=== PATIENT | female | born 1995 | race Caucasian/White ===

== ENCOUNTER 2020-09-19 10:30 | Outpatient (CLI) | payer OTHER, SELFPAY ==
[2020-09-19 11:06] LABS: Hematocrit 39.3 % (37.0-47.0); Hemoglobin 12.9 g/dL (12.0-15.0); Mean Corpuscular HGB Conc 32.8 g/dl (32-36); Mean Corpuscular Hemoglobin 28.8 pg (26-34); Mean Corpuscular Volume 87.7 fl (80-100); Mean Platelet Volume 10.9 fl (7.4-10.4); Platelet Count Result 244 k/mm3 (150-375); Red Blood Count 4.48 M/mm3 (4.2-5.4); Red Cell Distribution Width 13.1 % (11.5-14.5); White Blood Count 6.2 K/mm3 (4.5-10.0)
[2020-09-19 12:33] LABS: T4 Thyroxine 7.69 ug/dL (5.53-11.0)
[2020-09-19 12:34] LABS: Vitamin D 25 Hydroxy 73.6 ng/mL
== END 2020-09-19 10:31 | disposition home or self-care (01) ==
LOC: ANHLAB 10:33
PROVIDERS: Visit Provider Obstetrics & Gynecology
DX: R53.83 Other fatigue (principal)
CPT/HCPCS: 36415; 82306; 84436; 84443; 85027

== ENCOUNTER 2021-02-17 08:56 | Outpatient (CLI) | payer OTHER, SELFPAY ==
--- NOTE | ~2021-02-17 | US_ITS ---
EXAMINATION: US right upper quadrant DATE: 02/17/2021 09:19 INDICATION: Unspecified abdominal pain. TECHNIQUE: Multiple grayscale and Doppler ultrasound images of the abdomen were obtained. COMPARISON: None FINDINGS: Pancreas is normal. Liver has normal echogenicity and contour, with a smooth surface. No liver lesion identified. No intrahepatic biliary duct dilation suspected. Portal venous flow was seen in the hepa topetal, normal direction and has normal Doppler waveform. The visualized proximal to mid inferior ve na cava is normal. Liver has normal echogenicity and contour, with a smooth surface. No liver lesion identified. No intrahepatic biliary duct dilation suspected. Portal venous flow was seen in the hepat opetal, normal direction and has normal Doppler waveform. Sonographic Green sign was reported as neg ative by the hand touch up painter. IMPRESSION: 1. Normal right upper quadrant ultrasound. Reviewed, dictated and finalized at location B. 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
== END 2021-02-17 08:57 | disposition home or self-care (01) ==
PROVIDERS: PCP Family Medicine; Visit Provider Obstetrics & Gynecology
DX: R10.9 Unspecified abdominal pain (principal)
CPT/HCPCS: 76705

== ENCOUNTER 2022-03-01 11:06 | Observation (INO) | payer OTHER, SELFPAY ==
[2022-03-01] VITALS (9 sets, daily range): BP systolic 94–126; BP diastolic 53–79; PULSE 60–120; RESP 14–18; TEMP 36.2–38.2; O2SAT 95–98; BMI 27.2
--- NOTE | ~2022-03-01 | US_ITS ---
Pelvic ultrasound. Clinical History: Pelvic pain, fever, 9 days Technique: Realtime transabdominal and transvaginal scanning of the pelvis was performed. Color flow Doppler and Doppler spectral analysis were performed. Findings: The uterus is anteverted. There is heterogeneous material/fluid distending the endometrial cavity. There is a focal area of avid color flow adjacent to the endometrial lining on color-flow elana ging. The right ovary measures 1.3 x 2.5 x 1.2 cm. No significant right ovarian or adnexal mass is seen. The left ovary measures 2.1 x 1.4 x 1.0 cm. No significant left ovarian or adnexal mass is seen. Vascular flow present in both ovaries on Doppler spectral analysis. There is no evidence of free fluid in the cul de sac. Impression: Heterogeneous fluid distending the endometrial cavity. This could reflect blood products related to r ecent /delivery. Correlate clinically for endometritis. Focal area of avid color flow adjacent to the endometrial lining on color-flow imaging. Focal area of retained products of conception is a potential consideration. Reviewed, dictated and finalized at [facility]. 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 This could reflect blood products related to recent /delivery. Correlate clinically for endome tritis. Focal area of avid color flow adjacent to the endometrial lining on color-flow imaging. Focal area of retained products of conception is a potential considera tion.
[2022-03-01] MEDS: LACTATED RINGERS 1,000 ML 999 ML IV CONT ×2 (11:40→12:13)
[2022-03-01 11:53] LABS: Basophils Percent Auto 0.3 % (0.2-1.2); Eosinophils Absolute Auto 0.1 K/mm3 (0-0.3); Eosinophils Percent Auto 0.5 % (0-4.4); Hemoglobin 13.3 g/dL (12.0-15.0); Immature Granulocyte Absolute 0.06 K/mm3 (0.00-0.031); Immature Granulocyte Percent A 0.4 % (0-0.5); Lymphocytes Absolute Auto 1.29 K/mm3 (0.9-3.2); Lymphocytes Percent Auto 9.4 % (18.3-44.2); Mean Corpuscular HGB Conc 33.3 g/dl (32-36); Mean Corpuscular Hemoglobin 28.4 pg (26-34); Mean Corpuscular Volume 85.5 fl (80-100); Mean Platelet Volume 10.8 fl (7.4-10.4); Monocytes Absolute Auto 0.8 K/mm3 (0.1-0.6); Monocytes Percent Auto 6.1 % (2.6-8.5); Neutrophils Absolute Auto 11.4 K/mm3 (1.3-6.7); Neutrophils Percent Auto 83.3 % (45.5-73.1); Platelet Count Result 269 k/mm3 (150-375); Red Blood Count 4.68 M/mm3 (4.2-5.4); Red Cell Distribution Width 13.3 % (11.5-14.5); White Blood Count 13.7 K/mm3 (4.5-10.0)
[2022-03-01 12:03] LABS: Partial Thromboplastin Time 31.3 SECONDS (22.3-36.8); Prothrombin Time 12.8 Seconds (11.1-14.7)
[2022-03-01 12:09] LABS: Alanine Aminotransferase 22 U/L (6-35); Albumin Level 4.3 g/dL (3.5-5.1); Alkaline Phosphatase 96 U/L (38-126); Anion Gap 8 mmol/L (8-16); Aspartate Amino Transferase 21 U/L (14-36); Bilirubin,Total 0.5 mg/dL (0.2-1.3); Blood Urea Nitrogen 16 mg/dL (7-17); Calcium 8.8 mg/dL (8.4-10.2); Carbon Dioxide 24 mmol/L (22-30); Chloride 102 mmol/L (98-107); Estimated CRCL calculation 122 ml/min; Estimated Glomerular Filt Rate > 60; Glucose 90 mg/dL (65-110); Sodium 134 mmol/L (137-145)
[2022-03-01 12:17] LABS: Lactic Acid Reflex 0.7 mmol/L (0.7-2.0)
[2022-03-01 12:32] LABS: CRP 2.6 mg/dL (<1.0)
[2022-03-01 12:40] LABS: Influenza A QL RT-PCR Negative (Negative); Influenza B QL RT-PCR Negative (Negative); RSV RNA, RT-PCR Negative (Negative); SARS-CoV-2 RNA PCR Negative
[2022-03-01 13:20] LABS: Appearance Urine Clear (Clear); Bilirubin Urine Negative (Negative); Blood Urine 3+ (Negative); Color Urine Yellow (Yellow); Glucose Urine UA Negative (Negative); Ketones Urine Negative (Negative); Leukocyte Esterase Ur 1+ LEU/UL (Negative); Nitrate Urine Negative (Negative); Protein Urine Negative (Negative); Urobilinogen Urine 0.2 mg/dL (<2.0); pH Urine 5.5 (5.0-9.0)
[2022-03-01 13:36] LABS: Bacteria Urine Trace /hpf; Mucus Urine Rare /lpf; RBC Urine 21-50 /hpf (0-2); Squamous Epithelial Cell Urine Rare /hpf (Few)
[2022-03-01 13:39] LABS: Add Urine Microscopic? YES
--- NOTE | 2022-03-01 14:22 | ED.FEMALEGU ---
HPI - Female Genitourinary General Chief complaint: Fever Stated complaint: fever, 9 days Time Seen by Provider: 03/01/22 11:27 History of Present Illness HPI Narrative: 26-year-old female 9 days presents with fever that started this morning and severe pelvic pain that woke her out of sleep. Denies any malodorous vaginal discharge, she did take an ibuprofen before coming in here. Mild nausea. No breast pain. No cough. Related Data Home Medications Medication Instructions Recorded Confirmed cetirizine 10 mg capsule (Zyrtec) 10 mg PO DAILY PRN 08/19/20 09/20/20 cholecalciferol (vitamin D3) 25 25 mcg PO DAILY 08/19/20 09/20/20 mcg (1,000 unit) capsule ferrous sulfate 142 mg (45 mg 142 mg PO DAILY 08/19/20 09/20/20 iron) tablet,extended release (Slow Fe) glucosamine 500 mg-msm 500 tablet PO 08/19/20 09/20/20 mg-Boswellia 33.3 mg-herb 182 70 mg tablet (Cosamin [place] (with Boswellia)) levonorgestrel 20 mcg/24 hours (8 1 insert intrauterine ONCE 08/19/20 09/20/20 yrs) 52 mg intrauterine device (Mirena) omega-3 fatty acids 1,000 mg 1,000 mg PO DAILY 08/19/20 09/20/20 capsule (Fish Oil Concentrate) prenat.vits,aren,[id number] 1 tablet PO DAILY 08/19/20 09/20/20 Allergies Allergy/AdvReac Type Severity Reaction Status Date / Time No Known Allergies Allergy Verified 09/19/20 09:53 Review of Systems Review of Systems: CONST: Fever. HEENT: No sore throat C/V: No chest pain RESP: No cough GI: Reports pelvic pain : No vaginal discharge M/S: No joint pain. SKIN: No rash. NEURO: [No headache or focal numbness or weakness] PSYCH: [No depression] PMFSH Past Medical History Medical History Allergies Anemia Anxiety Headache Surgical History Surgical History [place] teeth extracted Family History Family History Father Hypertension Depression Mother Depression Thyroid disorder Diabetes mellitus Sibling Alcoholism Asthma Diabetes mellitus Grandparent Alcoholism Cancer Thyroid disorder Diabetes mellitus Hypertension Heart disease Cerebrovascular accident Social History Social History Smoking status: Never smoker Alcohol intake: current Substance use: never Exam Narrative: EXAMINATION OF ORGAN SYSTEMS/BODY AREAS: Constitutional: Vital signs per nursing GENERAL: Appears uncomfortable in bed HEAD: Normal with no signs of head trauma. EYES: EOMI, conjunctiva normal ENT: Hearing grossly intact LUNGS: Nonlabored breathing. HEART: Tachycardic ABD: [Soft], with pelvic tenderness EXT: Normal range of motion SKIN: [No rashes or lesions.] NEURO: [Alert and oriented x 3. No gross focal sensory or strength deficits.] PSYCH: Normal affect Course Vital Signs Vital signs: Vital Signs Temperature 100.7 F H 03/01/22 11:11 Pulse Rate 120 H 03/01/22 11:11 Respiratory Rate 14 03/01/22 11:11 Blood Pressure 121/72 03/01/22 11:11 Pulse Oximetry 97 03/01/22 11:11 Oxygen Delivery Room Air 03/01/22 11:11 Temperature 98.9 F 03/01/22 14:04 Pulse Rate 79 03/01/22 14:04 Respiratory Rate 17 03/01/22 14:04 Blood Pressure 122/79 03/01/22 14:04 Pulse Oximetry 97 03/01/22 14:04 Oxygen Delivery Room Air 03/01/22 11:11 MDM - Female Genitourinary MDM Narrative Medical decision making narrative: Patient presenting with pelvic pain and fever , vital signs notable for tachycardia and fever, she does have tenderness to the pelvis, on pelvic exam no large amount of vaginal discharge. I have highly concern for endometritis, I cannot find other source of her fever, she is started on infectious work-up including blood cultures, I will obtain a transvaginal ultrasound. Labs notable for leukocytosis, and
[2022-03-01] MEDS: IBUPROFEN 600 MG TABLET PO ×2 (14:54→21:08)
--- NOTE | 2022-03-01 14:59 | PC.NURSE ---
This RN called Vicki w/ [facility] and requested a breast pump for pt during her hospital stay. Will bring a pump over for pt to use while in hospital.
[2022-03-01] MEDS: AMPICILLIN SULB 3 GM/NS 100 ML 3 GM/100 ML VIAL IVPB ×2 (15:27→20:30)
--- NOTE | 2022-03-01 18:12 | PC.NURSE ---
OB Dr Diaz at bedside at this time to eval pt and discuss POC.
--- NOTE | 2022-03-01 18:15 | PM.IMHP ---
H&P: HPI History of Present Illness Date/Time: 03/01/22 18:15 Chief Complaint: Fever Narrative: 26 y/o PPD9 after at 39 1/7 weeks at [facility] with Dr. Golden. Uneventful , GBS neg. Labor was induced. No history of fever or other labor complication. Says she needed 1 or 2 stitches afterward. No perineal pain. . No cough or shortness of breath. No swelling. No rashes. No dysuria or frequency. Lochia is minimal. No passage of large blood clots or heavy bleeding. Normal bm. Baby is doing well. She woke up this morning with low abdominal pain and chills that worsened as the morning continued, prompting her visit to the ED. In the ED, her temp was 100.7F. She was found by the ED physician to have minimal lochia, but an uncomfortable pelvic exam. WBC 13.7K and Hgb 13.3 g/dL. Cr, Glucose, and transaminases all normal. Swabs negative for Influenza A and B, RSV, and SARS-CoV-2. UA shows blood. Ultrasound exam shows heterogeneous fluid in the endometrial cavity, and a focal area of avid color flow adjacent to the endometrial lining. The ED physician communicated with the patient's usual OB, Dr. Golden, who reportedly supported the idea of admission for treatment of presumed endometritis. I interviewed the patient while she was still in the ED. Her was present on speaker phone during the interview. Review of Systems Review of Systems: All systems reviewed & are unremarkable except as noted in HPI and below PMFSH Past Medical History Medical History Allergies Anemia Anxiety Headache Surgical History Surgical History [place] teeth extracted Family History Family History Father Hypertension Depression Mother Depression Thyroid disorder Diabetes mellitus Sibling Alcoholism Asthma Diabetes mellitus Grandparent Alcoholism Cancer Thyroid disorder Diabetes mellitus Hypertension Heart disease Cerebrovascular accident Social History Social History Smoking status: Never smoker Second hand tobacco smoke exposure: No Alcohol intake: former Substance use: never Lack of Transportation: No Lack of Food: Never True Current Housing: I Have Housing Concerned About Future Housing: No Difficulty Paying Gas/Electric Bills: No Difficulty Paying for Meds: No Currently Unemployed: No Education: Don't Know Difficulty w/ Childcare or Family Care: No Spiritual care concerns: No Meds Home Medications and Allergies Home Medications Medication Instructions Recorded Confirmed Type cetirizine 10 mg capsule (Zyrtec) 10 mg PO DAILY PRN allergies 08/19/20 03/01/22 History cholecalciferol (vitamin D3) 25 25 mcg PO DAILY 08/19/20 03/01/22 History mcg (1,000 unit) capsule omega-3 fatty acids 1,000 mg 1,000 mg PO DAILY 08/19/20 03/01/22 History capsule (Fish Oil Concentrate) prenat.vits,aren,ilj-hwbu-neboq 1 tablet PO DAILY 08/19/20 03/01/22 History Allergies Allergy/AdvReac Type Severity Reaction Status Date / Time No Known Allergies Allergy Verified 03/01/22 18:56 Vital Signs Vital Signs - 24 hr 03/01/22 11:11 03/01/22 11:59 03/01/22 14:04 Temperature 38.2 C H 37.2 C Pulse Rate 120 H 107 H 79 Respiratory Rate 14 18 17 Blood Pressure 121/72 94/53 L 122/79 Pulse Oximetry 97 95 97 Oxygen Delivery Room Air 03/01/22 16:19 03/01/22 18:00 03/01/22 18:12 Temperature 36.9 C 36.7 C Pulse Rate 60 104 H Respiratory Rate 14 18 Blood Pressure 108/68 113/69 Pulse Oximetry 98 97 Oxygen Delivery 03/01/22 18:54 03/01/22 20:00 03/01/22 19:01 Temperature 36.2 C L 36.2 C L Pulse Rate 98 98 Respiratory Rate 17 17 Blood Pressure 106/58 L 106/58 L Pulse Oximetry 96 96 Oxygen Delivery
--- NOTE | 2022-03-01 18:54 | ADMGEN ---
This patient, Batsheva Bolton, was admitted to 3 [facility] Surg Room 327-01. Patient/family oriented to hospital policies and general routines including ID bracelet, bed and alarms, visiting hours, pain management, procedures, bathroom and other care routines, personal items, smoking policy, room service/diet, and visiting hours. Information on how to activate the Rapid Response Team has been discussed. Patient/Family are encouraged to report perceived risks to care and to ask questions if they do not understand what they are told or what they should do. Report from Anne
[2022-03-02] MEDS: AMPICILLIN SULB 3 GM/NS 100 ML 3 GM/100 ML VIAL IVPB ×2 (03:11→09:57)
[2022-03-02 06:00] VITALS: BP 128/67; PULSE 109; RESP 18; TEMP 37.4; O2SAT 96
[2022-03-02 07:20] LABS: Basophils Percent Auto 0.3 % (0.2-1.2); Eosinophils Absolute Auto 0.3 K/mm3 (0-0.3); Eosinophils Percent Auto 2.2 % (0-4.4); Hematocrit 34.7 % (37.0-47.0); Hemoglobin 11.4 g/dL (12.0-15.0); Immature Granulocyte Absolute 0.06 K/mm3 (0.00-0.031); Immature Granulocyte Percent A 0.4 % (0-0.5); Lymphocytes Absolute Auto 1.04 K/mm3 (0.9-3.2); Lymphocytes Percent Auto 6.9 % (18.3-44.2); Mean Corpuscular HGB Conc 32.9 g/dl (32-36); Mean Corpuscular Hemoglobin 28.3 pg (26-34); Mean Corpuscular Volume 86.1 fl (80-100); Mean Platelet Volume 10.8 fl (7.4-10.4); Monocytes Absolute Auto 0.5 K/mm3 (0.1-0.6); Monocytes Percent Auto 3.4 % (2.6-8.5); Neutrophils Absolute Auto 13.2 K/mm3 (1.3-6.7); Neutrophils Percent Auto 86.8 % (45.5-73.1); Platelet Count Result 208 k/mm3 (150-375); Red Blood Count 4.03 M/mm3 (4.2-5.4); Red Cell Distribution Width 13.4 % (11.5-14.5); White Blood Count 15.1 K/mm3 (4.5-10.0)
[2022-03-02 07:41] VITALS: TEMP 38.5
[2022-03-02 07:49] VITALS: TEMP 38.5
[2022-03-02] MEDS: IBUPROFEN 600 MG TABLET PO (07:49)
--- NOTE | 2022-03-02 08:57 | PM.GYNPNOP ---
[employer] - A/P Assessment and plan (1) Puerperal fever, : Code(s): O86.4 - Pyrexia of unknown origin following delivery Status: Acute Assessment and Plan: A: Puerperal fever. Today I am more suspicious for mastitis, less suspicious for endometritis. P: I told her I wanted to continue IV antibiotics in the hospital and reevaluate tomorrow. She says she simply cannot stay. I offered to have the baby brought to her room for direct , and she says she just cannot stay. She understands I am not comfortable sending her home, but she also promises to follow up on Saturday. I will reluctantly discharge her and see her in 3 days in the office. Home on Augmentin and ibuprofen. Reviewed instructions and precautions in detail. Time Spent With Patient Time with patient: 15 - 25 minutes [employer]ER- PN:George Post-Op Subjective Date/time seen: 03/02/22 08:57 Interval history: No pain. [place] flushed this morning when she was found to be febrile. Minimal lochia. Breasts engorged, but she has been able to express some clogged ducts. She says she really cannot stay in the hospital, that she needs to get home to her baby. Review of Systems Review of Systems: All systems reviewed & are unremarkable except as noted in HPI and below Exam Narrative: T101.2F. Otherwise, VSS. ABD soft, nontender. Fundus firm, below umbilicus, nontender. BACK: No CVA tenderness EXT nontender WBC 15.1K [employer]ER - PN: Obj Data Vital Signs Vital Signs: Vital Signs - 24 hr 03/01/22 11:11 03/01/22 11:59 03/01/22 14:04 Temperature 38.2 C H 37.2 C Pulse Rate 120 H 107 H 79 Respiratory Rate 14 18 17 Blood Pressure 121/72 94/53 L 122/79 Pulse Oximetry 97 95 97 Oxygen Delivery Room Air 03/01/22 16:19 03/01/22 18:00 03/01/22 18:12 Temperature 36.9 C 36.7 C Pulse Rate 60 104 H Respiratory Rate 14 18 Blood Pressure 108/68 113/69 Pulse Oximetry 98 97 Oxygen Delivery 03/01/22 18:54 03/01/22 20:00 03/01/22 22:00 Temperature 36.2 C L 36.5 C Pulse Rate 98 86 Respiratory Rate 17 18 Blood Pressure 106/58 L 126/69 Pulse Oximetry 96 98 Oxygen Delivery Room Air 03/02/22 06:00 03/02/22 07:41 03/02/22 07:49 Temperature 37.4 C 38.5 C H 38.5 C H Pulse Rate 109 H Respiratory Rate 18 Blood Pressure 128/67 Pulse Oximetry 96 Oxygen Delivery 03/01/22 19:01 Temperature 36.2 C L Pulse Rate 98 Respiratory Rate 17 Blood Pressure 106/58 L Pulse Oximetry 96 Oxygen Delivery Intake/Output Intake/Output: Intake & Output 02/27/22 02/28/22 03/01/22 03/02/22 23:59 23:59 23:59 23:59 Intake Total 2300 100 Balance 2300 100 Meds/Results Medications: Active Medications Generic Name Dose Route Start Last Admin Trade Name Freq PRN Reason Stop Dose Admin Ampicillin Sodium/Sulbactam Sodium 3 gm in 100 mls @ 200 mls/hr 03/01/22 21:00 03/02/22 03:41 Unasyn 3 Gm/Ns 100 Ml IVPB Infused Q6H SAVANNHA Infusion Ibuprofen 600 mg 03/01/22 14:06 03/02/22 07:49 Ibuprofen 600 Mg Tablet PO 600 mg Q6H PRN Administration Mild Pain (1-3) or Fever Radiology Results: ITS Impressions Pelvis Ultrasound 03/01/22 13:07 Impression: Heterogeneous fluid distending the endometrial cavity. This could reflect blood products related to recent /delivery. Correlate clinically for endometritis. Focal area of avid color flow adjacent to the endometrial lining on color-flow imaging. Focal area of retained products of conception is a potential consideration. Labs 03/02/22 06:38 03/01/22 11:39 Labs: Laboratory Results - last 24 hr 03/01/22 03/01/22 03/01/22 11:39 11:39 11:39 WBC 13.7 H RBC 4.68 Hgb 13.3 Hct 40.0 MCV 85.5 MCH 28.4 MCHC 33.3 RDW 13.3 Plt Count 269 MPV 10.8 H Immature Gran % (Auto) 0.4 Neut % (Auto) 83.3 H Lymph % (Auto) 9.4 L [place] % (Auto) 6.1 Eos % (Auto) 0.5
[2022-03-02 10:14] VITALS: TEMP 36.3
[2022-03-02 10:23] VITALS: O2SAT 97
--- NOTE | 2022-03-30 12:44 | PM.DS ---
DS: Admitting Diagnosis Discharge Date 03/02/22 Admitting Diagnosis Puerperal fever DS: Discharge Diagnosis Discharge Diagnosis (1) Puerperal fever, : Code(s): O86.4 - Pyrexia of unknown origin following delivery Status: Acute DS: Summary Hospital Course Hospital Course: Admitted to the hospital with a fever, initially thought by the ED physician to represent endometritis, but more probably due to mastitis. She was admitted for IV antibiotics. Clinically improved, but needed to go home the next morning to take care of her family. She was discharged to f/u with ga in 2-3 days in the office. Time Spent with Patient Time attestation: Total time spent providing and/or coordinating discharge services: Discharge Plan Discharge Attending physician on discharge: Jesus Diaz Consulting providers: Lambert Braswell Discharging Clinician: Jesus Diaz Patient Disposition: Home, Self-Care Activity: pelvic rest Diet: regular Discharge Instructions: Call or return if temperature above 101? F, increased abdominal pain, increased vaginal bleeding or any new problems. Patient Instructions: Antibiotic Form Stand Alone Forms: General Discharge Information Follow-up/Referrals: Jesus Diaz MD [Physician] - Call for Appointment Discharge Medications: New amoxicillin-pot clavulanate [Augmentin] 500-125 mg tablet 1 tablet PO Q12H Qty: 10 0RF Continued prenat.vits,aren,psv-zpyn-nglff Tablet 1 tablet PO DAILY cholecalciferol (vitamin D3) 25 mcg (1,000 unit) capsule 25 mcg PO DAILY omega-3 fatty acids [Fish Oil Concentrate] 1,000 mg capsule 1,000 mg PO DAILY Zyrtec 10 mg capsule 10 mg PO DAILY PRN (Reason: allergies) Date of admission: 03/01/22 14:07 Primary Care Provider: Alyssa,Rosita Neri Admitting Provider: Jesus Diaz Attending physician on admission: Jesus Diaz Condition: Stable
== END 2022-03-02 10:50 | disposition home or self-care (01) ==
LOC: ANHED 14:27 → ANH3MEDSUR 17:32
PROVIDERS: Admitting Provider Obstetrics & Gynecology; Emergency Provider Emergency Medicine; PCP Family Medicine; Visit Provider Obstetrics & Gynecology
DX: O86.4 Pyrexia of unknown origin following delivery (principal); O90.89 Other complications of the puerperium, not elsewhere classified; R10.2 Pelvic and perineal pain; D64.9 Anemia, unspecified; F41.9 Anxiety disorder, unspecified; Z79.899 Other long term (current) drug therapy; Z20.822 Contact with and (suspected) exposure to COVID-19
CPT/HCPCS: 36415; 76856; 80053; 81001; 83605; 85025; 85610; 85730; 86140; 87040; 87086; 87637; 96365; 96366; 96367; 99285; A9270; G0378; J0131; J0295; J7120